=== PATIENT | female | born 1940 | race Caucasian/White ===

== ENCOUNTER 2016-11-09 08:36 | Day surgery (SDC) | payer MEDICARE, OTHER ==
--- NOTE | ~2016-11-09 | EGD ---
EGD REPORT [facility] [address] [address] NAME: JARETT SERRANO : 44 STATUS : REG [facility]#: [id number] AGE: 75 ADM/REG DATE : 11/09/16 MR#: [id number] REPORT SERV DATE: 11/09/16 DICTATED BY: DATE: REPORT STATUS : Draft TRANSCRIBED BY: [employer] DATE: 11/09/16 [facility] Patient Name: Jarett Serrano Date of : 1940 Attending MD: RADHA VILLAFANA MD Procedure Date No Time: 11/09/2016 Procedure: Colonoscopy Indications: Clinically significant diarrhea of unexplained origin; patient also has history of non-advanced adenoma Referring MD: BURAK MENON Medicines: Monitored Anesthesia Care Complications: No immediate complications. Procedure: Pre-Anesthesia Assessment: - ASA Grade Assessment: III - A patient with severe systemic disease. After I obtained informed consent, the scope was passed under direct vision. Throughout the procedure, the patient's blood pressure, pulse, and oxygen saturations were monitored continuously. The PCF [id number] was introduced through the anus and advanced to the cecum, identified by appendiceal orifice and ileocecal valve. The colonoscopy was performed without difficulty. The patient tolerated the procedure well. The quality of the bowel preparation was good. Findings: The perianal and digital rectal examinations were normal. Multiple small and large-mouthed diverticula were found in the entire colon. No other significant abnormalities were identified in a careful examination of the remainder of the colon. There is no endoscopic evidence of mass, polyps, ulcerations or angioectasia in the entire colon. Biopsies were taken with a cold forceps from the entire colon for evaluation of microscopic colitis. No additional abnormalities were found on retroflexion. Impression: - Diverticulosis in the entire examined colon. Recommendation: - Patient has a contact number available for emergencies. The signs and symptoms of potential delayed complications were discussed with the patient. Return to normal activities tomorrow. Written discharge instructions were provided to the patient. - Discharge patient to home. - High fiber diet. EGD REPORT [facility] [address] [place]. [address] NAME: JARETT SERRANO : 44 STATUS : REG [facility]#: [id number] AGE: 75 ADM/REG DATE : 11/09/16 MR#: [id number] REPORT SERV DATE: 11/09/16 DICTATED BY: DATE: REPORT STATUS : Draft TRANSCRIBED BY: [employer] DATE: 11/09/16 - Continue present medications. - Await pathology results. - Repeat colonoscopy in 5 years for surveillance given history of adenomatous polyps. Procedure Code(s): --- Professional --- 05571, Colonoscopy, flexible, proximal to splenic flexure; with biopsy, single or multiple Diagnosis Code(s): --- Professional --- K57.30, Diverticulosis of large intestine without perforation or abscess without bleeding R19.7, Diarrhea, unspecified CPT copyright 2013 [employer]. All rights reserved. The codes documented in this report are preliminary and upon funeral home director review may be revised to meet current compliance requirements. RADHA VILLAFANA MD 11/09/2016 12:16 PM This report has been signed electronically. Number of Addenda: 0 Note Initiated On: 11/09/2016 11:47 AM Scope Withdrawal Time 0 hours 10 minutes 19 seconds [address] [place] [address]
[~2016-11-09 08:36] MED LIST: ASAB PO; DIOVAN320 MG PO; GLUCOPHXR PO; LIPITOR10 PO; MOBIC7.5 PO; MULTIPLE VIT PO; OS500+D PO; PRILO PO; V40 PO; VERELANPM2 PO; VITAMIN D1000 UNI1 PO
== END 2016-11-09 23:59 | disposition home or self-care (01) ==
LOC: DMU 08:36
PROVIDERS: Internal Medicine Gastroenterology
PROC: 0DBE8ZX Excision of Large Intestine, Via Natural or Artificial Opening Endoscopic, Diagnostic (ICD-10-PCS; principal; 2016-11-09 11:00)
DX: K52.832 Lymphocytic colitis (principal); K57.30 Diverticulosis of large intestine without perforation or abscess without bleeding; K21.9 Gastro-esophageal reflux disease without esophagitis; E11.9 Type 2 diabetes mellitus without complications; I10 Essential (primary) hypertension; E66.9 Obesity, unspecified; Z86.010 Personal history of colon polyps; Z88.0 Allergy status to penicillin; Z88.2 Allergy status to sulfonamides; Z88.1 Allergy status to other antibiotic agents; Z79.52 Long term (current) use of systemic steroids; Z79.899 Other long term (current) drug therapy; Z90.710 Acquired absence of both cervix and uterus; Z90.89 Acquired absence of other organs; Z98.890 Other specified postprocedural states; Z98.41 Cataract extraction status, right eye; Z98.42 Cataract extraction status, left eye
CPT/HCPCS: 82962; 88305